=== PATIENT | female | born 1935 ===

== ENCOUNTER → 2021-04-29 | Outpatient (CLI) | payer MEDICARE ==
[2021-04-30 13:31] LABS: Hematocrit 39.7 % (30.3-42.9); Hemoglobin 13.1 gm/dl (10.1-14.3); Mean Corpuscular HGB Conc 33 % (30-34); Mean Corpuscular Volume 79 fl (79-97); Platelet Count 266 K/mm3 (140-440); Red Blood Count 5.02 M/mm3 (3.65-5.03); Red Cell Distribution Width 18.9 % (13.2-15.2)
[2021-04-30 13:44] LABS: % Iron Saturation 7.54 %; Alanine Aminotransferase 12 units/L (7-56); Albumin 4.1 g/dL (3.9-5); Blood Urea Nitrogen 18 mg/dL (7-17); Calcium 10.5 mg/dL (8.4-10.2); Chol/HDL Ratio 2.76 %; HDL Cholesterol 55 mg/dL (40-59); Hemolysis Index 6; Iron 23 ug/dL (37-170); LDL Cholesterol,Direct 83 mg/dL (50-130); Total Iron Binding Capacity 305 mcg/dL (250-450)
[2021-04-30 14:04] LABS: BUN/Creatinine Ratio 30
[2021-05-04 12:07] LABS: Vitamin D, 25-OH, D2 52 ng/mL
== END | disposition home or self-care (01) ==
LOC: LABHHL 18:35
DX: I10 Essential (primary) hypertension (principal); E55.9 Vitamin D deficiency, unspecified; D53.9 Nutritional anemia, unspecified; E11.9 Type 2 diabetes mellitus without complications
CPT/HCPCS: 36415; 80048; 80053; 80061; 82150; 82306; 82607; 82747; 83036; 83550; 84100; 84443; 85027